=== PATIENT | female | born 1990 | race Two or more races ===

== ENCOUNTER 2017-06-08 13:42 | Emergency (ER) | payer MEDICAID ==
--- NOTE | 2017-06-08 14:22 | EDM.PDOC ---
ED HPI GENERAL MEDICAL PROBLEM - General Chief Complaint: Abdominal Pain Stated Complaint: ABD PAIN Time Seen by Provider: 06/08/17 14:15 Source of Information: Reports: Patient History Limitations: Reports: No Limitations - History of Present Illness INITIAL COMMENTS - FREE TEXT/NARRATIVE: HISTORY AND PHYSICAL: []27-year-old female presenting with bilateral flank pain History of Present Illness: [Patient has been ill for the last 3 days] Admission states last time she felt like this was when she quit drinking up in [place] 1. Pyelonephritis Review of Systems: As per history of present illness and below otherwise all systems reviewed and negative. Past medical history: As per history of present illness and as reviewed below otherwise noncontributory. Surgical history: As per history of present illness and as reviewed below otherwise noncontributory. Social history: No reported history of drug or alcohol abuse. Family history: As per history of present illness and as reviewed below otherwise noncontributory. Physical exam: Alert and oriented female answering questions appropriately skin is warm and dry. Affect she speak in full sentences without any shortness of breath HEENT: Atraumatic, normocehpalic, pupils reactive, negative for conjunctival pallor or scleral icterus, mucous membranes moist, throat clear, neck supple, nontender, trachea midline. Lungs: Clear to auscultation, breath sounds equal bilaterally, chest non tender. Heart: S1S2, regular, negative for clicks, rubs, or JVD. Abdomen: Soft, nondistended, nontender. Negative for masses or hepatossplenmegaly. Positive for costovertebral tenderness bilaterally. Pelvis: Stable nontender. Genitourinary: Deferred. Rectal: Deferred Extremities: Atraumatic, negative for cords or calf pain. Neurovascular unremarkable. Neuro: Awake, alert, oriented. Cranial nerves II through XII unremarkable. Cerebellum unremarkable. Motor and sensory unremarkable throughout. Exam nonfocal. Diagnostics: [CBC CMP UA with culture KUB UDS Etoh] Therapeutics: [] Impression: [Pyelonephritis] Plan: [Discharged home Ciprofloxacin 500 mg twice a day 7 days Pyridium 100 mg 3 times a day 3 days] Definitive disposition and diagnosis as appropriate pending reevaluation and review of above. Onset: Gradual Duration: Day(s): Location: Reports: Abdomen, Back Quality: Reports: Ache Severity: Moderate Flank Pain Score (Numeric/FACES): 7 - Related Data Allergies Allergy/AdvReac Type Severity Reaction Status Date / Time acetaminophen [From Tylenol] Allergy Hives Verified 06/08/17 14:16 prednisone Allergy Hives Verified 06/08/17 14:16 Home Meds: Home Meds Ciprofloxacin [Ciprofloxacin HCl] 500 mg PO BID #14 tablet 06/08/17 [Rx] Phenazopyridine [Pyridium] 100 mg PO TID 3 Days #9 tablet 06/08/17 [Rx] ED ROS GENERAL - Review of Systems Review Of Systems: ROS reveals no pertinent complaints other than HPI. ED EXAM, GI/ABD - Physical Exam Exam: See Below (see dictation) Course - Vital Signs Last Recorded V/S: Last Vital Signs Temp 37.0 C 06/08/17 14:17 Pulse 96 06/08/17 14:17 Resp 12 06/08/17 14:17 BP 112/71 06/08/17 14:17 Pulse Ox 98 06/08/17 14:17 - Orders/Labs/Meds Orders: Active Orders 24 hr Category Date Time Status EKG Documentation Completion [RC] STAT Care 06/08/17 14:08 Inactive DRUG SCREEN, URINE [URCHEM] Stat Lab 06/08/17 14:08 Uncollected UA W/MICROSCOPIC [URIN] Stat Lab 06/08/17 14:08 Uncollected Labs: Laboratory Tests 06/08/17 06/08/17 Range/Units 14:17 14:17 WBC 4.46 (4.0-11.0) K/uL RBC 4.92 (4.30-5.90) M/uL Hgb 13.8 (12.0-16.0) g/dL Hct 42.8 (36.0-46.0) % MCV 87.0 (80.0-98.0) fL MCH 28.0 (27.0-32.0) pg MCHC 32.2 (31.0-37.0) g/dL RDW Std Deviation 49.6 (28.0-62.0) fl RDW Coeff of Marline 16 H (11.0-15.0) % Plt Count 363 (150-400) K/uL MPV 8.80 (7.40-12.00) fL Neut % (Auto) 68.0 (48.0-80.0) % Lymph % (Auto) 19.7 (16.0-40.0) % Kimble % (Auto) 10.3 (0.0-15.0) % Eos % (Auto) 1.3 (0.0-7.0) % Baso % (Auto) 0.7 (0.0-1.5) % Neut # (Auto) 3.0 (1.4-5.7) K/uL Lymph # (Auto) 0.9 (0.6-2.4) K/uL Kimble # (Auto) 0.5 (0.0-0.8) K/uL Eos # (Auto) 0.1 (0.0-0.7) K/uL Baso # (Auto) 0.0 (0.0-0.1) K/uL Nucleated RBC % 0.0 /100WBC Nucleated RBCs # 0 K/uL Sodium 139 (136-146) mmol/L Potassium 3.9 (3.5-5.1) mmol/L Chloride 111 H (98-110) mmol/L Carbon Dioxide 21 (21-31) mmol/L BUN 4 L (6.0-23.0) mg/dL Creatinine 0.7 (0.6-1.5) mg/dL Est Cr Clr Drug Dosing TNP Estimated GFR (MDRD) > 60.0 ml/min Glucose 80 (60-110) mg/dL Calcium 8.8 (8.8-10.8) mg/dL Total Bilirubin 0.7 (0.1-1.5) mg/dL AST 19 (5-40) IU/L ALT 16 (8-54) IU/L Alkaline Phosphatase 84 (40-150) Total Protein 7.2 (6.0-8.0) g/dL Albumin 4.0 (3.5-5.0) g/dL Globulin 3.2 (2.0-3.5) g/dL Albumin/Globulin Ratio 1.3 (1.3-2.8) Ethyl Alcohol < 10.0 mg/dL Departure - Departure Time of Disposition: 16:22 Disposition: Home, Self-Care 01 Condition: Good Clinical Impression: Pyelonephritis - Discharge Information Prescriptions: Ciprofloxacin [Ciprofloxacin HCl] 500 mg PO BID #14 tablet Phenazopyridine [Pyridium] 100 mg PO TID 3 Days #9 tablet Referrals: PCP,None [Primary Care Provider] - Forms: ED Department Discharge Additional Instructions: The following information is given to patients seen in the emergency department who are being discharged to home. This information is to outline your options for follow-up care. We provide all patients seen in our emergency department with a follow-up referral. The need for follow-up, as well as the timing and circumstances, are variable depending upon the specifics of your emergency department visit. If you don't have a primary care physician on staff, we will provide you with a referral. We always advise you to contact your personal physician following an emergency department visit to inform them of the circumstance of the visit and for follow-up with them and/or the need for any referrals to a consulting specialist. The emergency department will also refer you to a specialist when appropriate. This referral assures that you have the opportunity for followup care with a specialist. All of these measure are taken in an effort to provide you with optimal care, which includes your followup. Under all circumstances we always encourage you to contact your private physician who remains a resource for coordinating your care. When calling for followup care, please make the office aware that this follow-up is from your recent emergency room visit. If for any reason you are refused follow-up, please contact the [facility] emergency department at and asked to speak to the emergency department charge nurse. Follow-up with your primary care provider in 3 days Prescriptions of ciprofloxacin for your infection to the kidneys Prescription for Pyridium to relieve ear pain
[2017-06-08 14:59] LABS: CHLORIDE,CL 111 mmol/L (98-110); SODIUM,NA 139 mmol/L (136-146)
--- NOTE | 2017-06-08 15:07 | CR ---
EXAMINATION: Abdomen HISTORY: Pain COMPARISON: None TECHNIQUE: AP and upright views FINDINGS: There is stool and gas noted throughout the colon without evidence of obstruction. No abnor mal calcifications project over the kidneys. No organomegaly. The visualized osseous structures are n ormal. IMPRESSION: 1. No acute findings noted within the abdomen.
== END 2017-06-08 16:33 | disposition home or self-care (01) ==
LOC: MW.ED 13:42
DX: N12 Tubulo-interstitial nephritis, not specified as acute or chronic (principal); Z88.6 Allergy status to analgesic agent; Z88.8 Allergy status to other drugs, medicaments and biological substances
CPT/HCPCS: 36415; 74000; 80053; 80305; 81001; 85025; 99284; G0480; 99282